=== PATIENT | female | born 1985 | race Caucasian/White ===

== ENCOUNTER → 2019-09-23 | Outpatient (CLI) | payer OTHER ==
--- NOTE | 2019-09-24 22:31 | MR ---
EXAMINATION TYPE: MR brain wo/w con DATE OF EXAM: 09/23/2019 COMPARISON: None HISTORY: Numbness in hands, face, and mouth TECHNIQUE: Multiplanar, multisequence images of the brain and brainstem is performed without and with IV contras t, utilizing 7 mL intravenous Gadavist . FINDINGS: Ventricles and sulci appear normal. There is no mass effect nor midline shift. There is no sign of intracranial hemorrhage. There is no evidence of cortical infarct. Brainstem is intact. Cee- white matter structures have normal signal pattern. There is no evidence of cerebral edema. Corpus callosum appears normal. Sella turcica is normal. There is normal contrast opacification of the venous sinuses. There is no pathologic enhancement. IMPRESSION: Normal MR scan of the brain. No evidence of demyelinating disease. Minimal maxillary sinusitis is noted.
== END | disposition home or self-care (01) ==
LOC: RADMRIMAIN 13:25
PROVIDERS: ATTEND Psychiatry & Neurology Neurology
DX: R20.2 Paresthesia of skin (principal)
CPT/HCPCS: 70553; A9585

== ENCOUNTER 2019-09-26 23:14 | Emergency (ER) | payer OTHER ==
[2019-09-26 23:31] VITALS: TEMP 98.4
[2019-09-27 00:12] LABS: Appearance,Urine Clear (Clear); Bilirubin,Urine Negative (Negative); Blood,Urine Negative (Negative); Color,Urine Yellow; Glucose,Urine (UA) Negative (Negative); Ketones,Urine Negative (Negative); Leukocyte Esterase,Urine Negative (Negative); Nitrite,Urine Negative (Negative); PH, Urine 5.5 (5.0-8.0); Protein,Urine Negative (Negative); Specific Gravity,Urine 1.018 (1.001-1.035); Urobilinogen,Urine <2.0 mg/dL (<2.0)
[2019-09-27] MEDS ORDERED: SODIUM CHLORIDE 0.9% 500 ML 500 ML IV STA (00:16)
--- NOTE | 2019-09-27 00:39 | XR ---
EXAMINATION TYPE: XR abdomen 2V DATE OF EXAM: 09/27/2019 COMPARISON: NONE HISTORY: Abdominal pain TECHNIQUE: 3 views FINDINGS: Bowel gas pattern is normal. There is no sign of intestinal obstruction or pneumoperitoneum . Fecal pattern is normal. There are no pathologic calcifications. IMPRESSION: Nonacute abdomen.
[2019-09-27 00:44] LABS: Basophils # (A) 0.1 k/uL (0-0.2); Basophils % (A) 2 %; Eosinophils # (A) 0.1 k/uL (0-0.7); Eosinophils % (A) 1 %; HCT 41.6 % (34.0-46.0); HGB 13.8 gm/dL (11.4-16.0); Lymphocytes # (A) 1.8 k/uL (1.0-4.8); Lymphocytes % (A) 26 %; MCH 29.2 pg (25.0-35.0); MCHC 33.3 g/dL (31.0-37.0); MCV 87.6 fL (80.0-100.0); Mean Platelet Volume 6.9; Monocytes # (A) 0.3 k/uL (0-1.0); Monocytes % (A) 4 %; Neutrophils # (A) 4.5 k/uL (1.3-7.7); Neutrophils % (A) 66 %; Platelet Count 256 k/uL (150-450); RBC 4.75 m/uL (3.80-5.40); RDW 12.5 % (11.5-15.5); WBC 6.9 k/uL (3.8-10.6)
[2019-09-27 00:56] LABS: ALT 21 U/L (9-52); AST 32 U/L (14-36); African American GFR (CKD) >90 (>60 ml/min/1.73 sqM); Albumin 4.5 g/dL (3.5-5.0); Alkaline Phosphatase 74 U/L (38-126); Anion Gap 11 mmol/L; Blood Urea Nitrogen 13 mg/dL (7-17); Calcium 9.6 mg/dL (8.4-10.2); Carbon Dioxide 21 mmol/L (22-30); Chloride 104 mmol/L (98-107); Glucose 97 mg/dL (74-99); Non-African American GFR(CKD) >90 (>60 ml/min/1.73 sqM); Sodium 136 mmol/L (137-145); Total Bilirubin 0.8 mg/dL (0.2-1.3); Total Protein 7.6 g/dL (6.3-8.2)
[2019-09-27 01:37] VITALS: BP 104/73; PULSE 80; RESP 18
[2019-09-27 01:42] LABS: Potassium 4.5 mmol/L (3.5-5.1)
--- NOTE | 2019-09-27 02:14 | ED ---
Abdominal Pain HPI - General Chief Complaint: Abdominal Pain Stated Complaint: Side Pain, Nausea Time Seen by Provider: 09/26/19 23:42 Source: patient Mode of arrival: ambulatory Limitations: no limitations - History of Present Illness Initial Comments: Irais is a 33-year-old female who presents to the emergency department today for evaluation of vague left-sided abdominal cramping pain. Patient reports she's been having loose stools throughout the day today. Stools him to slow down this evening but she is having some crampy left upper quadrant abdominal pain, no nausea or vomiting. She's been able to eat and drink her normal diet. She denies any flank pain dysuria or hematuria. Her last menses was September 07. She denies any possibility of . She denies any history of GI pathology including Crohn's, ulcerative colitis or irritable bowel. - Related Data Home Medications Medication Instructions Recorded Confirmed No Known Home Medications 09/26/19 09/26/19 Allergies Allergy/AdvReac Type Severity Reaction Status Date / Time No Known Allergies Allergy Verified 09/26/19 23:31 Review of Systems ROS Statement: Those systems with pertinent positive or pertinent negative responses have been documented in the HPI. ROS Other: All systems not noted in ROS Statement are negative. Past Medical History Past Medical History: No Reported History History of Any Multi-Drug Resistant Organisms: None Reported Past Surgical History: No Surgical Hx Reported Past Psychological History: No Psychological Hx Reported Smoking Status: Former smoker Past Alcohol Use History: Occasional Past Drug Use History: None Reported General Exam - General Exam Comments Initial Comments: Physical Exam GENERAL: Patient is well-developed and well-nourished. Patient is nontoxic and well- hydrated and is in no distress. HENT: Normocephalic, Atraumatic. EYES: PERRL, EOMI PULMONARY: Unlabored respirations. No audible rales rhonchi or wheezing was noted. CARDIOVASCULAR: There is a regular rate and rhythm without any murmurs gallops or rubs. ABDOMEN: Soft and nontender with normal bowel sounds. SKIN: Skin is clear with no lesions or rashes and otherwise unremarkable. : Deferred NEUROLOGIC: Patient is alert and oriented x3. Moving all extremities spontaneously Radial nerve II through XII grossly intact Normal strength in bilateral upper and lower extremities MUSCULOSKELETAL: Normal extremities with adequate strength and full range of motion. No lower extremity swelling or edema. No calf tenderness. PSYCHIATRIC: Normal psychiatric evaluation. Limitations: no limitations Course Vital Signs 09/26/19 09/27/19 23:27 01:35 Temperature 98.4 F Pulse Rate 95 80 Respiratory 20 18 Rate Blood Pressure 121/84 104/73 O2 Sat by Pulse 97 99 Oximetry Medical Decision Making - Medical Decision Making The patient was seen and evaluated, history was obtained from the patient History and physical exam are unremarkable. Patient reported vague abdominal cramping with loose stools earlier in the day. Initial urinalysis was obtained, urine was normal, is negative Given that there is no signs of a urinary tract infection or kidney stone abdominal labs were obtained, resulted with no significant abnormalities. Patient continues to rest comfortably in the emergency department. At this time patient is stable for discharge home as there doesn't appear to be any acute pathology. Patient agreeable with this plan. All questions pertaining care were answered return parameters were discussed patient was discharged home in stable condition. - Lab Data Result diagrams: 09/27/19 00:30 09/27/19 00:30 Lab Results 09/26/19 09/26/19 09/27/19 Range/Units 23:45 23:45 00:30 WBC 6.9 (3.8-10.6) k/uL RBC 4.75 (3.80-5.40) m/uL Hgb 13.8 (11.4-16.0) gm/dL Hct 41.6 (34.0-46.0) % MCV 87.6 (80.0-100.0) fL MCH 29.2 (25.0-35.0) pg MCHC 33.3 (31.0-37.0) g/dL RDW 12.5 (11.5-15.5) % Plt Count 256 (150-450) k/uL Neutrophils % 66 % Lymphocytes % 26 % Monocytes % 4 % Eosinophils % 1 % Basophils % 2 % Neutrophils # 4.5 (1.3-7.7) k/uL Lymphocytes # 1.8 (1.0-4.8) k/uL Monocytes # 0.3 (0-1.0) k/uL Eosinophils # 0.1 (0-0.7) k/uL Basophils # 0.1 (0-0.2) k/uL Sodium (137-145) mmol/L Potassium (3.5-5.1) mmol/L Chloride (98-107) mmol/L Carbon Dioxide (22-30) mmol/L Anion Gap mmol/L BUN (7-17) mg/dL Creatinine (0.52-1.04) mg/dL Est GFR (CKD-EPI)AfAm (>60 ml/min/1.73 sqM) Est GFR (CKD-EPI)NonAf (>60 ml/min/1.73 sqM) Glucose (74-99) mg/dL Calcium (8.4-10.2) mg/dL Total Bilirubin (0.2-1.3) mg/dL AST (14-36) U/L ALT (9-52) U/L Alkaline Phosphatase (38-126) U/L Total Protein (6.3-8.2) g/dL Albumin (3.5-5.0) g/dL Lipase (23-300) U/L Urine Color Yellow Urine Appearance Clear (Clear) Urine pH 5.5 (5.0-8.0) Ur Specific [place] 1.018 (1.001-1.035) Urine Protein Negative (Negative) Urine Glucose (UA) Negative (Negative) Urine Ketones Negative (Negative) Urine Blood Negative (Negative) Urine Nitrite Negative (Negative) Urine Bilirubin Negative (Negative) Urine Urobilinogen <2.0 (<2.0) mg/dL Ur Leukocyte Esterase Negative (Negative) Urine HCG, Qual Not Detected (Not Detectd) 09/27/19 Range/Units 00:30 WBC (3.8-10.6) k/uL RBC (3.80-5.40) m/uL Hgb (11.4-16.0) gm/dL Hct (34.0-46.0) % MCV (80.0-100.0) fL MCH (25.0-35.0) pg MCHC (31.0-37.0) g/dL RDW (11.5-15.5) % Plt Count (150-450) k/uL Neutrophils % % Lymphocytes % % Monocytes % % Eosinophils % % Basophils % % Neutrophils # (1.3-7.7) k/uL Lymphocytes # (1.0-4.8) k/uL Monocytes # (0-1.0) k/uL Eosinophils # (0-0.7) k/uL Basophils # (0-0.2) k/uL Sodium 136 L (137-145) mmol/L Potassium 4.5 (3.5-5.1) mmol/L Chloride 104 (98-107) mmol/L Carbon Dioxide 21 L (22-30) mmol/L Anion Gap 11 mmol/L BUN 13 (7-17) mg/dL Creatinine 0.62 (0.52-1.04) mg/dL Est GFR (CKD-EPI)AfAm >90 (>60 ml/min/1.73 sqM) Est GFR (CKD-EPI)NonAf >90 (>60 ml/min/1.73 sqM) Glucose 97 (74-99) mg/dL Calcium 9.6 (8.4-10.2) mg/dL Total Bilirubin 0.8 (0.2-1.3) mg/dL AST 32 (14-36) U/L ALT 21 (9-52) U/L Alkaline Phosphatase 74 (38-126) U/L Total Protein 7.6 (6.3-8.2) g/dL Albumin 4.5 (3.5-5.0) g/dL Lipase 113 (23-300) U/L Urine Color Urine Appearance (Clear) Urine pH (5.0-8.0) Ur Specific [place] (1.001-1.035) Urine Protein (Negative) Urine Glucose (UA) (Negative) Urine Ketones (Negative) Urine Blood (Negative) Urine Nitrite (Negative) Urine Bilirubin (Negative) Urine Urobilinogen (<2.0) mg/dL Ur Leukocyte Esterase (Negative) Urine HCG, Qual (Not Detectd) Disposition Clinical Impression: Abdominal pain Disposition: HOME SELF-CARE Condition: Stable Instructions (If sedation given, give patient instructions): Abdominal Pain (ED) Is patient prescribed a controlled substance at d/c from ED?: No Referrals: Isaias Dutton MD [Primary Care Provider] - 1-2 days
== END 2019-09-27 02:25 | disposition home or self-care (01) ==
LOC: SUPCPDRO 23:14 → EC 23:14
DX: R10.12 Left upper quadrant pain (principal); Z32.02 Encounter for pregnancy test, result negative; Z87.891 Personal history of nicotine dependence
CPT/HCPCS: 36415; 74019; 80053; 81003; 81025; 83690; 85025; 96360; 99284

== ENCOUNTER 2021-04-23 19:31 | Emergency (ER) | payer OTHER ==
[2021-04-23] MEDS ORDERED: diphenhydrAMINE 25 MG CAP PO STA (20:44)
[2021-04-23] MEDS ORDERED: FAMOTIDINE 20 MG TAB PO STA (20:44)
--- NOTE | 2021-04-23 20:48 | ED ---
Allergic Reaction HPI - General Chief complaint: Allergic Reaction Stated complaint: Poss allergic reaction Time Seen by Provider: 04/23/21 20:09 Source: patient Mode of arrival: ambulatory - History of Present Illness Initial Comments: Patient is a 35-year-old female with no significant past medical history presents to emergency department concern for an acute ALLERGIC reaction. Patient states that she presented to an urgent care earlier today after eating a hamburger. She states that after she ate the hamburger, she began having a tingling feeling in her tongue and felt that her tongue was swelling. She denied any difficulty eating, drinking, breathing. She denies any rash but states she felt itchy around her neck. She became concerned that she was having ALLERGIC reaction presented to the urgent care. The urgent care provided her with an IM injection of 125 mg of Solu-Medrol. The discharge her home in stable condition. Patient states that she felt well throughout the day today until this evening when she ate pizza. The symptoms returned at that time. This is approximately 2 hours prior to arrival. She states her tongue still feels tingly, however she does not feel it is swollen. She denies any difficulty breathing or swallowing. She denies any wheezing, rash, itchiness. She denies any headache, numbness, weakness. She has no other acute complaints at this time. She is uncertain if she is having an ALLERGIC reaction and wanted to be evaluated. She denies any fevers, chills, cough, difficulty breathing. She denies any chest pain. - Related Data Previous Rx's Medication Instructions Recorded EPINEPHrine (Auto Inject) [Epipen] 0.3 mg IM ONCE PRN #1 pen 04/23/21 Famotidine [Pepcid] 20 mg PO DAILY #14 tablet 04/23/21 diphenhydrAMINE [Benadryl] 25 mg PO BID PRN #28 capsule 04/23/21 Allergies Allergy/AdvReac Type Severity Reaction Status Date / Time No Known Allergies Allergy Verified 04/23/21 19:53 Review of Systems ROS Statement: Those systems with pertinent positive or pertinent negative responses have been documented in the HPI. Review of Systems: CONST: Denies fever EYES: Denies blurry vision ENT: Denies nasal congestion C/V: Denies Chest pain RESP: Denies shortness of breath GI: Denies abdominal pain : Denies dysuria SKIN: Denies rash. MSK: Denies joint pain. NEURO: Denies headache ROS Other: All systems not noted in ROS Statement are negative. Past Medical History Past Medical History: No Reported History History of Any Multi-Drug Resistant Organisms: None Reported Past Surgical History: No Surgical Hx Reported Past Psychological History: No Psychological Hx Reported Smoking Status: Never smoker Past Alcohol Use History: Occasional Past Drug Use History: None Reported General Exam - General Exam Comments Initial Comments: Constitutional: Blood pressure was 134/78, pulse was 112, respirations were 18, pulse oximetry was 98% on room air, temperature was 99.2. General: Appears in no acute distress. HEAD: Normal with no signs of head trauma. EYES: PERRLA, EOMI, conjunctiva normal, no discharge. ENT: Hearing grossly intact. Patient has enlarged tonsils which is known, however no acute swelling to posterior or anterior oropharynx. Tongue is unremarkable. There is no stridor auscultated on exam. RESPIRATORY: Clear breath sounds bilaterally. No wheezes, rales, or rhonchi. C/V: Is mildly tachycardic in triage but is no longer tachycardic when I evaluated her on the team. S1 and S2 auscultated. Peripheral pulses are 2+ and intact throughout. ABD: Abd is soft, nontender, nondistended EXT: Normal range of motion, no obvious deformity SKIN: No rashes or lesions observed on exposed skin. NEURO: Alert and oriented x 4. Cranial nerves II-XII intact. No focal sensory or strength deficits. Course Vital Signs 04/23/21 04/23/21 19:50 21:01 Temperature 99.2 F 98.0 F Pulse Rate 112 H 79 Respiratory 18 17 Rate Blood Pressure 134/78 129/82 O2 Sat by Pulse 98 99 Oximetry Medical Decision Making - Medical Decision Making Based on the patient's presentation and physical exam, she is not having an anaphylactic reaction but may be having a mild ALLERGIC reaction to an unknown substance. Her airway is intact and she has no other signs of ALLERGIC reaction at this time. Vital signs are stable and within normal limits. I spoke at length with her regarding her current symptoms and I believe that she is stable for discharge home. As the patient did receive Solu-Medrol earlier, do not believe that she requires a repeat dose, however we'll provide her with by mouth antihistamines, famotidine and diphenhydramine. I was provided her with prescription for famotidine, diphenhydramine, as well as an EpiPen. She was in agreement with this plan. Patient was discharged home in stable condition. Disposition Clinical Impression: Allergic reaction Disposition: HOME SELF-CARE Condition: Good Instructions (If sedation given, give patient instructions): Anaphylaxis (ED) Prescriptions: diphenhydrAMINE [Benadryl] 25 mg PO BID PRN #28 capsule PRN Reason: Itching EPINEPHrine (Auto Inject) [Epipen] 0.3 mg IM ONCE PRN #1 pen PRN Reason: Anaphylaxis Famotidine [Pepcid] 20 mg PO DAILY #14 tablet Is patient prescribed a controlled substance at d/c from ED?: No Referrals: Isaias Dutton MD [Primary Care Provider] - 1-2 days
[2021-04-23 21:03] VITALS: BP 129/82; PULSE 79; RESP 17; TEMP 98
== END 2021-04-23 21:00 | disposition home or self-care (01) ==
LOC: EC 19:31
DX: T78.40XA Allergy, unspecified, initial encounter (principal); Z79.899 Other long term (current) drug therapy
CPT/HCPCS: 99283